=== PATIENT | male | born 1945 | race Caucasian/White ===

== ENCOUNTER → 2023-07-26 | Day surgery (SDC) | payer OTHER ==
[~2023-07-26] VITALS: Ht 175.2 cm; Wt 104.3 kg
[~2023-07-26] MED LIST: ASPIRIN81 M1 PO; ATORVASTATIN CA20 M1 PO; IRON325 M1 PO; LASIX40 MG PO; PROVENTIL HFA6.7 GM INH
[2023-07-26 10:30] VITALS: BP 105/68
[2023-07-26 12:43] VITALS: BP 123/59
[2023-07-26 12:58] VITALS: BP 125/63
[2023-07-26 13:13] VITALS: BP 122/55
== END | disposition home or self-care (01) ==
LOC: SDC 07-21 15:30
PROVIDERS: ATTEND Ophthalmology
DX: H25.11 Age-related nuclear cataract, right eye (principal); I10 Essential (primary) hypertension; E78.00 Pure hypercholesterolemia, unspecified; R06.00 Dyspnea, unspecified; J43.9 Emphysema, unspecified; Z98.818 Other dental procedure status; Z98.890 Other specified postprocedural states; Z88.8 Allergy status to other drugs, medicaments and biological substances

== ENCOUNTER → 2023-08-30 | Day surgery (SDC) | payer OTHER ==
[~2023-08-30] VITALS: Ht 175.2 cm; Wt 104.3 kg
[~2023-08-30] MED LIST changes: +Balanced Salt Solution 500 ML OPH ONE; +Balanced Salt Solution 500 ML OPH SCH; +Cefuroxime Sodium 5 MG in BALANCED SALT IRRIG SOLN NO.2 0.5 ML,SYRINGE, DISPOSABLE, 10 ... IO ONE; +OFLOXACIN 0.3% 5 ML BOTTLE ONE; +OFLOXACIN 0.3% 5 ML BOTTLE OPH SCH; +PHENYLEPHRINE/KETOROLAC 4 ML in Balanced Salt Solution 500 ML OPH ONE; +PHENYLEPHRINE/KETOROLAC 4 ML in Balanced Salt Solution 500 ML OPH SCH; +POVIDONE IODINE 5% OPHTHALMIC 30 ML BOTTLE OPH ONE; +POVIDONE IODINE 5% OPHTHALMIC 30 ML BOTTLE OPH SCH; +Phenylephrine Hydrochloride 2 ML BOT OPH ONE; +Phenylephrine Hydrochloride 2 ML BOT OPH SCH; +Proparacaine Hydrochloride 15 ML BOT OPH ONE; +Proparacaine Hydrochloride 15 ML BOT OPH SCH; +SODIUM CHLORIDE 0.9% 1,000 ML IV SCH; +TROPICAMIDE 15 ML BOT OPH ONE; +TROPICAMIDE 15 ML BOT OPH SCH; +Tetracaine Hydrochloride 0.5% 4 ML BOT OPH ONE; +prednisoLONE acetate 1% OPHTHALMIC 5 ML BOT OPH ONE; +prednisoLONE acetate 1% OPHTHALMIC 5 ML BOT OPH SCH
[2023-08-30 11:10] VITALS: BP 121/49
[2023-08-30 12:54] VITALS: BP 113/72
[2023-08-30 13:03] VITALS: BP 119/74
[2023-08-30 13:20] VITALS: BP 123/71
== END | disposition home or self-care (01) ==
LOC: SDC 08-28 09:30
PROVIDERS: ATTEND Ophthalmology
DX: H25.812 Combined forms of age-related cataract, left eye (principal); I10 Essential (primary) hypertension; J44.9 Chronic obstructive pulmonary disease, unspecified; E78.00 Pure hypercholesterolemia, unspecified; Z79.899 Other long term (current) drug therapy; Z98.890 Other specified postprocedural states